=== PATIENT | female | born 1995 | race Caucasian/White ===

== ENCOUNTER 2019-09-01 17:04 | Observation (INO) ==
[2019-09-01] MEDS ORDERED: Ondansetron 4 MG/2 ML VIAL IVP PRN (20:54)
[2019-09-01] MEDS ORDERED: Naloxone 0.4 MG/ML INJ IVP PRN (20:54)
[2019-09-01] MEDS ORDERED: *HR* HYDROmorphone (PF) 1 MG/ML SYRINGE IVP PRN (21:17)
[2019-09-01 21:58] LABS: Alanine Aminotransferase 211 Units/L (7-52); Albumin 4.2 g/dL (3.5-5.7); Albumin/Globulin Ratio 1.9 (1.1-2.2); Alkaline Phosphatase 393 Units/L (34-104); Aspartate Amino Transferase 137 Units/L (13-39); BUN/Creatinine Ratio 10 (6-26); Bilirubin,Total 1.1 mg/dL (0.3-1.0); Blood Urea Nitrogen 6 mg/dL (6-20); Calcium 9.3 mg/dL (8.6-10.3); Carbon Dioxide 19 mEq/L (23-29); Chloride 108 mEq/L (98-107); Globulin 2.2 g/dL (2.4-3.5); Glucose 82 mg/dL (70-105); Osmolality,Calculated 279 (280-300); Potassium 3.7 mEq/L (3.5-5.1); Sodium 136 mEq/L (136-145); Total Protein 6.4 g/dL (6.4-8.9); eGFR For African Americans > 60 (> 60); eGFR For Non-African Americans > 60 (> 60)
[2019-09-01 22:54] LABS: Basophils % 0.4 %; Eosinophils # 0.1 K/mcL (0.0-0.6); Eosinophils % 1.6 %; Hematocrit 40.1 % (35.3-44.9); Hemoglobin 12.9 g/dL (11.5-15.4); Immature Granulocytes % 0.6 % (0-4); Lymphocytes # 1.4 K/mcL (0.6-4.6); Lymphocytes % 20.3 %; Mean Corpuscular HGB Conc 32.2 g/dL (31.6-35.5); Mean Corpuscular Hemoglobin 27.9 pg (28.0-33.3); Mean Corpuscular Volume 86.8 fL (83.0-100.0); Mean Platelet Volume 12.5 fL (9.4-12.4); Monocytes # 0.6 K/mcL (0.0-1.3); Monocytes % 8.1 %; Neutrophils # 4.7 K/mcL (1.6-8.9); Platelet Count 134 K/mcL (140-400); Red Blood Count 4.62 M/mcL (3.82-4.97); Red Cell Distribution Width 16.8 % (11.5-14.5); White Blood Count 6.8 K/mcL (4.3-11.1)
[2019-09-01] MEDS: Ringers Solution, Lactated 1,000 ML IVC SCH (23:05)
[2019-09-01] MEDS: 0.9 % Sodium Chloride 1,000 ML IVC SCH (23:06)
[2019-09-01] MEDS: *HR* Heparin 5,000 UNIT/ML VIAL SQ SCH (23:06)
[2019-09-02 04:50] LABS: Basophils % 0.3 %; Eosinophils # 0.2 K/mcL (0.0-0.6); Eosinophils % 2.6 %; Hematocrit 40.3 % (35.3-44.9); Hemoglobin 12.6 g/dL (11.5-15.4); INR 1.4; Immature Granulocytes % 0.3 % (0-4); Lymphocytes # 1.8 K/mcL (0.6-4.6); Lymphocytes % 26.2 %; Mean Corpuscular HGB Conc 31.3 g/dL (31.6-35.5); Mean Corpuscular Hemoglobin 27.6 pg (28.0-33.3); Mean Corpuscular Volume 88.4 fL (83.0-100.0); Mean Platelet Volume 12.2 fL (9.4-12.4); Monocytes # 0.6 K/mcL (0.0-1.3); Monocytes % 9.1 %; Neutrophils # 4.2 K/mcL (1.6-8.9); Platelet Count 143 K/mcL (140-400); Prothrombin Time 16.1 Seconds (9.4-12.1); Red Blood Count 4.56 M/mcL (3.82-4.97); Red Cell Distribution Width 16.9 % (11.5-14.5); Segmented Neutrophils % 61.5 %; White Blood Count 6.8 K/mcL (4.3-11.1)
[2019-09-02 05:00] LABS: Alanine Aminotransferase 178 Units/L (7-52); Albumin 3.9 g/dL (3.5-5.7); Albumin/Globulin Ratio 1.6 (1.1-2.2); Alkaline Phosphatase 344 Units/L (34-104); Aspartate Amino Transferase 85 Units/L (13-39); BUN/Creatinine Ratio 11 (6-26); Bilirubin,Total 0.7 mg/dL (0.3-1.0); Blood Urea Nitrogen 7 mg/dL (6-20); Carbon Dioxide 20 mEq/L (23-29); Chloride 109 mEq/L (98-107); Chol/HDL Ratio 2.8 (0-4.9); Cholesterol 99 mg/dL (< 200); Globulin 2.4 g/dL (2.4-3.5); Glucose 77 mg/dL (70-105); HDL Cholesterol 36 mg/dL (40-59); LDL Cholesterol,Calculated 43 mg/dL (0-99); Magnesium 1.7 mg/dL (1.6-2.6); Osmolality,Calculated 281 (280-300); Phosphorous 2.9 mg/dL (2.7-4.5); Potassium 3.6 mEq/L (3.5-5.1); Sodium 137 mEq/L (136-145); Total Protein 6.3 g/dL (6.4-8.9); Triglycerides 101 mg/dL (< 150); eGFR For African Americans > 60 (> 60); eGFR For Non-African Americans > 60 (> 60)
[2019-09-02] MEDS ORDERED: 0.9 % Sodium Chloride 1,000 ML ONE (05:09)
[2019-09-02] MEDS: 0.9 % Sodium Chloride 1,000 ML IVC SCH (05:13)
[2019-09-02] MEDS ORDERED: Dextrose 4 GM Chewable Tablets PO PRN (05:30)
[2019-09-02] MEDS: *HR* Heparin 5,000 UNIT/ML VIAL SQ SCH ×3 (06:00→22:04)
[2019-09-02] MEDS: Ringers Solution, Lactated 1,000 ML IVC SCH (16:34)
[2019-09-02 17:12] LABS: Bilirubin,Urine Negative (Negative); Blood,Urine Negative (Negative); Clarity,Urine Clear (Clear); Color,Urine Yellow (Yellow); Glucose,Urine (UA) Normal (Normal); Ketones,Urine 40 mg/dL (Negative); Leukocyte Esterase,Urine Negative (Negative); Nitrite,Urine Negative (Negative); Protein,Urine Negative (Neg-Trace); Specific Gravity,Urine 1.014 (1.010-1.025); Urobilinogen,Urine Normal (Normal)
[2019-09-02 21:07] LABS: Adenovirus F 40/41 PCR Not detected (Not detect); Astrovirus PCR Not detected (Not detect); C.difficile Toxin A/B Gene PCR Not detected (Not detect); Campylobacter by PCR Not detected (Not detect); Cryptosporidium by PCR Not detected (Not detect); Cyclospora cayetanensis PCR Not detected (Not detect); E. coli O157 by PCR Not detected (Not detect); Entamoeba histolytica PCR Not detected (Not detect); Enteroaggregative E.coli(EAEC) Not detected (Not detect); Enteropathogenic E.coli(EPEC) Not detected (Not detect); Enterotoxigenic E.coli (ETEC) Not detected (Not detect); Giardia lamblia PCR Not detected (Not detect); Norovirus GI/GII PCR Not detected (Not detect); Plesiomonas shigelloides PCR Not detected (Not detect); Rotavirus A PCR Not detected (Not detect); Salmonella PCR Not detected (Not detect); Sapovirus PCR Not detected (Not detect); Shig/EnteroinvasiveE coli EIEC Not detected (Not detect); Shigalike tox-prod E coli STEC Not detected (Not detect); Vibrio PCR Not detected (Not detect); Vibrio cholerae PCR Not detected (Not detect); Yersinia enterocolitica PCR Not detected (Not detect)
[2019-09-03] MEDS: Levothyroxine 25 MCG TABLET PO SCH (04:22)
[2019-09-03] MEDS: *HR* Heparin 5,000 UNIT/ML VIAL SQ SCH ×3 (04:22→21:04)
[2019-09-03 10:34] LABS: Hematocrit 41.5 % (35.3-44.9); Mean Corpuscular HGB Conc 31.3 g/dL (31.6-35.5); Mean Corpuscular Hemoglobin 27.8 pg (28.0-33.3); Mean Corpuscular Volume 88.9 fL (83.0-100.0); Mean Platelet Volume 12.6 fL (9.4-12.4); Platelet Count 157 K/mcL (140-400); Red Blood Count 4.67 M/mcL (3.82-4.97); Red Cell Distribution Width 16.2 % (11.5-14.5); White Blood Count 9.3 K/mcL (4.3-11.1)
[2019-09-03 10:51] LABS: Alanine Aminotransferase 128 Units/L (7-52); Albumin/Globulin Ratio 1.5 (1.1-2.2); Alkaline Phosphatase 336 Units/L (34-104); Aspartate Amino Transferase 39 Units/L (13-39); BUN/Creatinine Ratio 11 (6-26); Bilirubin,Total 0.4 mg/dL (0.3-1.0); Blood Urea Nitrogen 8 mg/dL (6-20); Calcium 9.3 mg/dL (8.6-10.3); Carbon Dioxide 20 mEq/L (23-29); Chloride 109 mEq/L (98-107); Globulin 2.7 g/dL (2.4-3.5); Glucose 65 mg/dL (70-105); Osmolality,Calculated 280 (280-300); Sodium 137 mEq/L (136-145); Total Protein 6.7 g/dL (6.4-8.9); eGFR For African Americans > 60 (> 60); eGFR For Non-African Americans > 60 (> 60)
[2019-09-04] MEDS: *HR* Heparin 5,000 UNIT/ML VIAL SQ SCH ×3 (04:23→21:48)
[2019-09-04] MEDS: Levothyroxine 25 MCG TABLET PO SCH (05:13)
[2019-09-04 05:52] LABS: Basophils % 0.2 %; Eosinophils # 0.3 K/mcL (0.0-0.6); Eosinophils % 2.8 %; Hematocrit 43.7 % (35.3-44.9); Hemoglobin 13.8 g/dL (11.5-15.4); Immature Granulocytes % 0.3 % (0-4); Lymphocytes # 3.3 K/mcL (0.6-4.6); Lymphocytes % 35.9 %; Mean Corpuscular HGB Conc 31.6 g/dL (31.6-35.5); Mean Corpuscular Hemoglobin 27.5 pg (28.0-33.3); Mean Corpuscular Volume 87.2 fL (83.0-100.0); Monocytes # 0.7 K/mcL (0.0-1.3); Monocytes % 7.4 %; Neutrophils # 4.9 K/mcL (1.6-8.9); Platelet Count 200 K/mcL (140-400); Red Blood Count 5.01 M/mcL (3.82-4.97); Red Cell Distribution Width 16.2 % (11.5-14.5); Segmented Neutrophils % 53.4 %; White Blood Count 9.1 K/mcL (4.3-11.1)
[2019-09-04 06:12] LABS: Alanine Aminotransferase 102 Units/L (7-52); Albumin 4.1 g/dL (3.5-5.7); Albumin/Globulin Ratio 1.6 (1.1-2.2); Alkaline Phosphatase 328 Units/L (34-104); Aspartate Amino Transferase 26 Units/L (13-39); BUN/Creatinine Ratio 9 (6-26); Bilirubin,Total 0.4 mg/dL (0.3-1.0); Blood Urea Nitrogen 6 mg/dL (6-20); Calcium 9.4 mg/dL (8.6-10.3); Carbon Dioxide 20 mEq/L (23-29); Chloride 109 mEq/L (98-107); Globulin 2.6 g/dL (2.4-3.5); Glucose 80 mg/dL (70-105); Lipase 92 Units/L (11-82); Osmolality,Calculated 283 (280-300); Potassium 3.7 mEq/L (3.5-5.1); Sodium 138 mEq/L (136-145); Total Protein 6.7 g/dL (6.4-8.9); eGFR For African Americans > 60 (> 60); eGFR For Non-African Americans > 60 (> 60)
[2019-09-04] MEDS ORDERED: Ketorolac 30 MG/ML VIAL ONE (10:16)
[2019-09-04] MEDS ORDERED: *HR* FentaNYL (PF) 100 MCG/2 ML VIAL ONE (10:16)
[2019-09-04] MEDS ORDERED: Ondansetron 4 MG/2 ML VIAL ONE (10:16)
[2019-09-04] MEDS ORDERED: Dexamethasone 4 MG/ML VIAL ONE (10:16)
[2019-09-04] MEDS ORDERED: *HR* Succinylcholine 200 MG/10 ML VIAL IVP ONE (10:16)
[2019-09-04] MEDS ORDERED: Lidocaine -MPF 2% 2 ML VIAL ONE (10:16)
[2019-09-04] MEDS ORDERED: *HR* Propofol 200 MG/20 ML VIAL IVP ONE (10:17)
[2019-09-04] MEDS ORDERED: *HR* Midazolam HCl 2 MG/2 ML VIAL ONE (10:17)
[2019-09-04] MEDS ORDERED: *HR* PHENYLEPHRINE 1,000 MCG/10 ML SYRINGE IVP ONE (11:18)
[2019-09-04] MEDS ORDERED: Indomethacin 50 MG SUPP.RECT RC ONE (12:59)
[2019-09-04] MEDS: 0.9 % Sodium Chloride 1,000 ML IVC SCH ×2 (13:45→23:30)
[2019-09-05 01:48] LABS: Basophils % 0.2 %; Hematocrit 42.5 % (35.3-44.9); Hemoglobin 13.8 g/dL (11.5-15.4); Immature Granulocytes % 0.3 % (0-4); Lymphocytes # 1.5 K/mcL (0.6-4.6); Lymphocytes % 10.4 %; Mean Corpuscular HGB Conc 32.5 g/dL (31.6-35.5); Mean Corpuscular Hemoglobin 27.8 pg (28.0-33.3); Mean Corpuscular Volume 85.7 fL (83.0-100.0); Mean Platelet Volume 12.6 fL (9.4-12.4); Monocytes # 0.5 K/mcL (0.0-1.3); Monocytes % 3.6 %; Neutrophils # 12.7 K/mcL (1.6-8.9); Platelet Count 233 K/mcL (140-400); Red Blood Count 4.96 M/mcL (3.82-4.97); Red Cell Distribution Width 15.8 % (11.5-14.5); Segmented Neutrophils % 85.5 %; White Blood Count 14.8 K/mcL (4.3-11.1)
[2019-09-05] MEDS ORDERED: Ketorolac 15 MG/ML VIAL IVP ONE (01:51)
[2019-09-05 02:07] LABS: Alanine Aminotransferase 88 Units/L (7-52); Albumin 4.4 g/dL (3.5-5.7); Albumin/Globulin Ratio 1.5 (1.1-2.2); Alkaline Phosphatase 319 Units/L (34-104); Aspartate Amino Transferase 24 Units/L (13-39); BUN/Creatinine Ratio 9 (6-26); Bilirubin,Total 0.4 mg/dL (0.3-1.0); Blood Urea Nitrogen 6 mg/dL (6-20); Calcium 9.7 mg/dL (8.6-10.3); Carbon Dioxide 20 mEq/L (23-29); Chloride 109 mEq/L (98-107); Glucose 151 mg/dL (70-105); Osmolality,Calculated 289 (280-300); Potassium 3.9 mEq/L (3.5-5.1); Sodium 139 mEq/L (136-145); Total Protein 7.4 g/dL (6.4-8.9); eGFR For African Americans > 60 (> 60); eGFR For Non-African Americans > 60 (> 60)
[2019-09-05] MEDS: *HR* Heparin 5,000 UNIT/ML VIAL SQ SCH (06:06)
[2019-09-05] MEDS: Levothyroxine 25 MCG TABLET PO SCH (06:07)
[2019-09-05] MEDS ORDERED: CefOXitin 1,000 MG VIAL ONE (07:38)
[2019-09-05] MEDS ORDERED: cefOXitin 1,000 MG, 0.9 % Sodium Chloride 1,000 ML IR ONE ×2 (08:00→14:27)
[2019-09-05] MEDS ORDERED: *HR* Midazolam HCl 2 MG/2 ML VIAL ONE ×2 (09:35→11:36)
[2019-09-05] MEDS ORDERED: *HR* FentaNYL (PF) 100 MCG/2 ML VIAL ONE (09:35)
[2019-09-05] MEDS ORDERED: *HR* Propofol 200 MG/20 ML VIAL IVP ONE ×2 (09:35→11:02)
[2019-09-05] MEDS ORDERED: *HR* Rocuronium Bromide 50 MG/5 ML VIAL ONE (09:40)
[2019-09-05] MEDS ORDERED: *HR* Succinylcholine 200 MG/10 ML VIAL IVP ONE (09:40)
[2019-09-05] MEDS ORDERED: Lidocaine -MPF 2% 2 ML VIAL ONE ×2 (09:40→11:36)
[2019-09-05] MEDS ORDERED: Ondansetron 4 MG/2 ML VIAL ONE ×2 (09:40→11:38)
[2019-09-05] MEDS ORDERED: Dexamethasone 4 MG/ML VIAL ONE (11:38)
[2019-09-05] MEDS ORDERED: EPHEDrine 50 MG/ML VIAL ONE (11:41)
[2019-09-05] MEDS ORDERED: CefOXitin 2,000 MG VIAL ONE (12:48)
[2019-09-05] MEDS ORDERED: cefOXitin 2,000 MG in Water for inj. (sterile) 20 ML IVP ONE (12:52)
[2019-09-05] MEDS ORDERED: *HR* HYDROMORPHONE 2 MG/ML VIAL ONE (13:06)
[2019-09-05] MEDS ORDERED: 0.9 % Sodium Chloride 1,000 ML IVC SCH (14:27)
[2019-09-05] MEDS ORDERED: Naloxone 0.4 MG/ML INJ IVP PRN (14:27)
[2019-09-05] MEDS ORDERED: Dextrose 4 GM Chewable Tablets PO PRN (14:27)
[2019-09-05] MEDS ORDERED: Ondansetron 4 MG/2 ML VIAL IVP PRN (14:27)
[2019-09-05] MEDS ORDERED: *HR* HYDROmorphone (PF) 1 MG/ML SYRINGE IVP PRN (14:27)
[2019-09-05 14:32] VITALS: BP 131/95
[2019-09-05] MEDS ORDERED: *HR* Heparin 5,000 UNIT/ML VIAL SQ SCH (22:00)
[2019-09-06] MEDS ORDERED: Levothyroxine 25 MCG TABLET PO SCH (06:30)
== END 2019-09-05 17:38 | disposition home or self-care (01) ==
LOC: 3ANU → SUATTDRO 18:42 → 2NNU 09-02 12:47 → 2NENU 09-03 00:13 → 3BNU 09-04 22:28
PROVIDERS: ADMIT Student in an Organized Health Care Education/Training Program; ATTEND Family Medicine